=== PATIENT | female | born 1985 | race Caucasian/White ===

== ENCOUNTER 2019-11-25 05:58 | Day surgery (SDC) | payer OTHER ==
[2019-11-25] MEDS ORDERED: fentaNYL 100 MCG/2 ML SDV IV ONE ×3 (05:59→06:59)
[2019-11-25] MEDS ORDERED: Midazolam 1 MG/ML 2 ML SDV IV ONE ×3 (05:59→07:00)
[2019-11-25] MEDS ORDERED: Midazolam 1 MG/ML 2 ML SDV ONE (06:22)
[2019-11-25] MEDS ORDERED: fentaNYL 100 MCG/2 ML SDV ONE (06:22)
[2019-11-25] MEDS ORDERED: Dextrose 5%-0.45% NaCl 1,000 ML IV SCH (06:30)
--- NOTE | 2019-11-25 08:51 | OR ---
DATE: 11/25/2019 PROCEDURE: Esophagogastroduodenoscopy and multiple pinch biopsies. INSTRUMENT USED: [id number]-HQ190 Olympus video panendoscope. PREMEDICATIONS: No oral or topical anesthesia used. Fentanyl 100 mcg intravenous, Versed 2 mg intravenous. The procedure was done under pulse oximetry, BP recording, and phototypesetting equipment monitor. INDICATION: The patient with persistent upper abdominal pain, unexplained and not responsive to medical measures. Esophagogastroduodenoscopy is performed for detection of any active erosive lesions, [place] esophagus and/or malignancy also under consideration, H. pylori status to be determined, endoscopic hemostasis therapy if needed. DESCRIPTION OF PROCEDURE: The scope was passed with ease. Adequate visualization of the esophagus was made from proximal to distal areas. No upper esophageal lesions identified. No distal esophageal stricture. No uphill or downhill esophageal varices. No Mei-Zavala tear. No evidence of erosive esophagitis by [place] criteria. No esophageal polyp or tumor mass identified. Z-line was seen at around 40 cm distal to the oral verge, configuration consistent with grade 1 by ZAP classification. No proximal gastric varices noted. Gastric fundus examination by retroflexion showed no polypoid lesions, no gastric ulcer, malignant mass, or vascular ectasia identified. Duodenal bulb showed no ulcer. Visualized second part of the duodenum was unremarkable. Multiple pinch biopsies were taken from the gastric antrum and proximal body and sent for PyloriTek test for H. pylori, and if negative, the tissue is to be sent for histopathology. No bleeding was noted from any of the visualized areas at the completion of examination. Photographs were taken of the duodenal bulb, gastric antrum, fundus, and distal esophagus. IMPRESSION: Normal study. The patient tolerated the procedure well. [facility] /[id number]
[2019-11-25 09:03] VITALS: BP 98/65
[2019-11-25 09:14] VITALS: PULSE 78
== END 2019-11-25 09:20 | disposition home or self-care (01) ==
LOC: DL.ENDO 05:58
PROVIDERS: ATTEND Internal Medicine Gastroenterology
DX: R10.13 Epigastric pain (principal); E03.9 Hypothyroidism, unspecified; J45.909 Unspecified asthma, uncomplicated; F41.9 Anxiety disorder, unspecified; Z88.8 Allergy status to other drugs, medicaments and biological substances; Z87.09 Personal history of other diseases of the respiratory system
CPT/HCPCS: 43239; 87077; J2250; J3010; J7042